=== PATIENT | female | born 1990 | race Caucasian/White ===

== ENCOUNTER → 2022-03-02 | Outpatient (CLI) | payer OTHER ==
[2022-03-03 13:51] LABS: Candida species (DNA Probe) Negative (NEGATIVE); G. vaginalis (DNA Probe) Negative (NEGATIVE); T. vaginalis (DNA Probe) Negative (NEGATIVE)
[2022-03-04 00:09] LABS: CHLAMYDIA TRACHOMATIS, NAA Negative (Negative)
[2022-03-06 15:09] LABS: HPV 16 Negative (Negative); HPV 18 Negative (Negative); HPV OTHER HR TYPES Negative (Negative)
== END | disposition home or self-care (01) ==
LOC: LAB SHORT 15:31
PROVIDERS: Obstetrics & Gynecology
DX: Z34.81 Encounter for supervision of other normal pregnancy, first trimester (principal)
CPT/HCPCS: 87480; 87491; 87510; 87591; 87624; 87660; G0123

== ENCOUNTER → 2022-08-14 | Outpatient (CLI) | payer OTHER | END | disposition home or self-care (01) | LOC: LAB SHORT 15:48 → LAB 15:48 | DX: O09.892 Supervision of other high risk pregnancies, second trimester (principal) | CPT/HCPCS: 87081; 87150 ==

== ENCOUNTER 2022-09-18 06:34 | Inpatient (IN) | payer OTHER ==
[~2022-09-18] VITALS: Ht 180.3 cm; Wt 104.5 kg
[2022-09-18] VITALS (14 sets, daily range): BP systolic 109–131; BP diastolic 58–76
[2022-09-18 07:09] LABS: BASOPHILS ABSOLUTE AUTO 0.05 K/mm3 (0.00-0.23); BASOPHILS PERCENT AUTO 1 % (0-2); EOSINOPHILS ABSOLUTE AUTO 0.12 K/mm3 (0.00-0.68); EOSINOPHILS PERCENT AUTO 1 % (0-6); Hematocrit 39.5 % (33.0-51.0); Hemoglobin 13.9 g/dL (11.5-16.0); IMMATURE GRAN ABSOLUTE AUTO 0.03 K/mm3 (0.00-0.10); IMMATURE GRAN PERCENT AUTO 0 % (0-1); LYMPHOCYTES ABSOLUTE AUTO 2.09 K/mm3 (0.84-5.20); LYMPHOCYTES PERCENT AUTO 20 % (21-46); MONOCYTES ABSOLUTE AUTO 0.66 K/mm3 (0.16-1.47); MONOCYTES PERCENT AUTO 6 % (4-13); Mean Corpuscular HGB 30.5 pg (26.0-34.0); Mean Corpuscular HGB Conc 35.2 g/dL (31.5-36.5); Mean Corpuscular Volume 87 fL (80-100); Mean Platelet Volume 10.9 fL (9.1-12.4); NEUTROPHILS ABSOLUTE AUTO 7.55 K/mm3 (1.96-9.15); NEUTROPHILS PERCENT AUTO 72 % (41-73); Platelet Count 273 K/mm3 (150-400); RDW Coefficient Variation 12.9 % (11.7-14.2); RDW Standard Deviation 40.6 fL (35.1-46.3); Red Blood Cell Count 4.55 M/mm3 (3.80-5.20)
[2022-09-18] MEDS ORDERED: PRENATAL TABLE1 EAC2 PO (07:26)
[2022-09-19 00:30] VITALS: BP 111/70
[2022-09-19 04:39] VITALS: BP 102/61
[2022-09-19 07:16] VITALS: BP 106/74
[2022-09-19] MEDS ORDERED: ACET500 PO (10:17)
[2022-09-19] MEDS ORDERED: IBUP800 PO (10:18)
[2022-09-19 11:05] VITALS: BP 120/75
--- NOTE | 2022-09-19 11:56 | NUR ---
PATIENT DISCHARGE EDUCATION PROVIDED TO PATIENT AND SPOUSE AT BEDSIDE. ADVISED THE IMPORTANCE OF MONITORING FOR S/S OF CHEST PAIN, SOB, RED/PAINFUL AREA IN CALVES, HEADACHES, VISION CHANGES, BLEEDING. REVIEWED DEPRESSION WITH PATIENT AND SPOUSE AND MONITORING FOR HARMFUL THOUGHTS OF HURTING HERSELF OR BABY. PATIENT AND SPOUSE BOTH VERBALIZED UNDERSTANDING, DENIED ANY FURTHER QUESTIONS OR CONCERNS AT THIS TIME.
== END 2022-09-19 11:30 | disposition home or self-care (01) | DRG 807 ==
LOC: OBS 06:34 → BC 06:44
PROVIDERS: ADMIT Obstetrics & Gynecology
PROC: 10E0XZZ Delivery of Products of Conception, External Approach (ICD-10-PCS; principal; 2022-09-18)
PROC: 10907ZC Drainage of Amniotic Fluid, Therapeutic from Products of Conception, Via Natural or Artificial Opening (ICD-10-PCS; 2022-09-18)
PROC: 0HQ9XZZ Repair Perineum Skin, External Approach (ICD-10-PCS; 2022-09-18)
DX: O48.0 Post-term pregnancy (principal); Z37.0 Single live birth; O99.334 Smoking (tobacco) complicating childbirth; F17.210 Nicotine dependence, cigarettes, uncomplicated; O70.0 First degree perineal laceration during delivery; O71.82 Other specified trauma to perineum and vulva; O99.344 Other mental disorders complicating childbirth; F41.8 Other specified anxiety disorders; Z3A.41 41 weeks gestation of pregnancy
CPT/HCPCS: 36415; 85025; 86850; 86900; 86901; A9270; J1885; J2210; J2590; J3010; J7120